=== PATIENT | female | born 1940 | race Two or more races ===

== ENCOUNTER 2020-08-21 07:09 | Emergency (ER) | payer OTHER ==
[~2020-08-21] VITALS: Ht 129.5 cm; Wt 52.2 kg
[~2020-08-21 07:09] MED LIST: ACYCLOVIR400 MG PO; ELOCON45 G1 TP; NEURONTIN300 MG PO; ZYRTEC10 M3 PO
== END 2020-08-21 16:11 | disposition home or self-care (01) ==
LOC: ER 07:09
DX: M54.5 Low back pain (principal); Z20.822 Contact with and (suspected) exposure to COVID-19

== ENCOUNTER 2020-08-23 13:39 | Inpatient (IN) | payer OTHER ==
[~2020-08-23] VITALS: Ht 144.8 cm; Wt 52.2 kg
[2020-08-23] MEDS ORDERED: ALTACE10 MG PO (13:49)
== END 2020-08-26 13:33 | disposition home or self-care (01) | DRG 310 ==
LOC: ER 13:39 → MEDI 19:22
PROVIDERS: ADMIT Internal Medicine; ATTEND Internal Medicine
PROC: B24BYZZ Ultrasonography of Heart with Aorta using Other Contrast (ICD-10-PCS; principal; 2020-08-23)
PROC: 4A12X4Z Monitoring of Cardiac Electrical Activity, External Approach (ICD-10-PCS; 2020-08-24)
DX: I48.91 Unspecified atrial fibrillation (principal); R00.2 Palpitations; I10 Essential (primary) hypertension; Z20.822 Contact with and (suspected) exposure to COVID-19